=== PATIENT | male | born 1970 | race Caucasian/White ===

== ENCOUNTER 2017-07-18 19:23 | Emergency (ER) | payer OTHER ==
[~2017-07-18] VITALS: Ht 182.9 cm; Wt 123.0 kg
[2017-07-18 19:28] VITALS: TEMP 36.7; Ht 182.9 cm; Wt 123.0 kg
[2017-07-18 21:48] VITALS: BP 194/102; PULSE 103; O2SAT 96
--- NOTE | 2017-07-19 15:17 | EMERGENCY ROOM VISIT NOTE ---
History First contact with patient: 19:45 Chief Complaint: EYE PAIN Stated Complaint: RETINAL HEMORRHAGE History of Present Illness The patient is a 47 year old male who presents to the Emergency Room with complaints of visual changes to his right eye. The patient reports ongoing chronic problems with his right eye. He states that he follows with [facility] ophthalmology at [facility], where he has had multiple injections and laser treatments for his eyes. He is unsure of exact diagnosis. He describes having veins in the back of his eye break, causing showers into the eye itself. He states that he had another episode like this 2 days ago, and it has been bothering him since. He is incarcerated and was brought to the ER for evaluation. The patient does not have pain or distinct vision loss. No headache or neck pain. No fever or chills. The patient has chronic hypertension and refuses to take his medication per his medical record from the [facility]. The patient rates his overall discomfort a 0/10. Review of Systems More than 10 systems were reviewed and otherwise negative with the exception of history of present illness. Past Medical/Surgical History Chronic vitreous hemorrhage, hypertension Family History No pertinent family history Social History Smoking Status: Never Smoker Occupation Status: other Physical Exam Vital Signs Date Time Temp Pulse Resp B/P (MAP) Pulse Ox O2 Delivery O2 Flow Rate FiO2 07/18/17 21:48 103 19 194/102 96 07/18/17 19:28 36.7 103 19 194/102 96 Room Air Right Eye Acuity: 20/20 affected Left Eye Acuity: 20/25 Physical Exam VITALS: Vitals are noted on the nurse's note and reviewed by myself. Vital signs with hypertension. Visual acuity as above GENERAL: Well-developed, well-nourished, white male, who is in no acute distress and resting comfortably. Patient is cooperative with the examination. HEAD: Normocephalic atraumatic. EARS: External ear normal. External auditory canals clear, tympanic membranes pearly hartmann without erythema or effusion bilaterally. EYES: Pupils equal round and reactive to light and accommodation. Conjunctivae without injection, sclerae without icterus. Extraocular movements intact. No obvious hemorrhage or retinal attachment on funduscopic exam. Normal intraocular pressures. No foreign body. No abrasion or ulceration. HEART: Regular rate and rhythm without murmurs gallops or rubs. LUNGS: Clear to auscultation bilaterally without wheezes, rales or rhonchi. No retractions or accessory muscle use. Medical Decision & Procedures ED Course Physical exam and history were performed. Nursing notes, EMR, and Medication List were personally reviewed. Patient appears to have what sounds like a history of vitreous hemorrhage that has required injection and laser therapy in the past. The patient does not believe that he is diabetic. He is a known hypertensive patient who refuses to take his medications as they are prescribed. On examination he appears well and without obvious visual changes. He does follow with the [facility] ophthalmology group, and we attempted to contact his providers, however they are not on-call tonight. We ultimately did not receive a call back from his [facility] provider, and I did speak with the on-call abstracter, Dr. Blanca. Recommendation was that the patient take his antihypertensive medications and follow-up with his abstracter on Friday. The patient is to be followed with the [facility] for further care and management. He is otherwise felt to be stable for discharge back to [facility]. He rated his discomfort a 0/10 at the time of departure. The chart was completed utilizing [employer] Speech Voice Recognition Software. Grammatical errors, random word insertions, pronoun errors, and incomplete sentences are an occasional consequence of this system due to software limitations, ambient noise, and hardware issues. Any formal questions or concerns about the content, text, or information contained within the body of this dictation should be directly addressed to the provider for clarification. . Medical Decision Differential diagnosis includes, but is not limited to: Foreign body, vitreous hemorrhage, retinal detachment, stroke, abrasion, and others Blood Pressure Screening Patient's blood pressure: Elevated blood pressure Blood pressure disposition: Referred to PCP Impression Primary Impression: Visual disturbance Additional Impression: Elevated blood pressure reading Departure Information Dispostion Home / Self-Care Condition FAIR Referrals Chavez Phillips D.O. Forms HOME CARE DOCUMENTATION FORM, IMPORTANT VISIT INFORMATION Patient Instructions [facility] Additional Instructions You were seen and evaluated today on an emergency basis only. This is not a substitute for, or an effort to provide, complete comprehensive medical care. It is not possible to recognize and treat all injuries or illnesses in a single emergency department visit. For this reason it is recommended that you followup with Ophthalmology, Dr. Phillips's office, on Friday or Friday for recheck. Call in the morning to help schedule the appointment. Let them know you were seen in the ER tonight. We recommend that you take your blood pressure medication as prescribed. You are welcome to return to the emergency department anytime with new, worsening, or concerning symptoms. Problem Qualifiers
== END 2017-07-18 21:48 ==
LOC: C.EDB 19:26 → C.EDD 21:48
DX: H53.9 Unspecified visual disturbance (principal); I10 Essential (primary) hypertension; Z91.14 Patient's other noncompliance with medication regimen